=== PATIENT | male | born 1980 | race African-American/Black ===

== ENCOUNTER 2020-10-10 11:24 | Inpatient (IN) | payer OTHER ==
[2020-10-10 13:02] LABS: EOS % 4.6 % (0-4.5); HEMATOCRIT 24.1 % (35.4-49); HEMOGLOBIN 8.4 GM/dL (11.7-16.9); LYMPH % 12.1 % (8-40); MCH 32.5 pg (25.7-33.7); MCHC 34.8 g/dl (32.0-35.9); MEAN CELL VOLUME 93.4 fl (80-96); MEAN PLT VOLUME 5.9 fl (7.5-11.1); MONO % 5.9 % (3.8-10.2); NEUT % 76.4 % (42.8-82.8); PLATELET COUNT 277 10^3/uL (134-434); RBC 2.58 M/mm3 (4.00-5.60); RDW 14.7 % (11.9-15.9); WHITE BLOOD COUNT 6.1 K/mm3 (4.0-10.0)
[2020-10-10 13:08] LABS: INR 1.06 (0.83-1.09)
[2020-10-10 13:11] LABS: ACTIVATED PTT 30.9 SECONDS (25.2-36.5)
[2020-10-10 13:26] LABS: ALBUMIN 3.5 g/dl (3.4-5.0); BILIRUBIN,TOTAL 0.3 mg/dL (0.2-1); BLOOD UREA NITROGEN 14.9 mg/dL (7-18); CALCIUM 8.7 mg/dL (8.5-10.1); CREATININE 6.2 mg/dL (0.55-1.3); TOT PROT 6.6 g/dl (6.4-8.2)
[2020-10-10] MEDS ORDERED: POTASSIUM CHLORIDE TABS 20 MEQ TABLET.ER (FP) PO ONE ×2 (17:26→18:29)
[2020-10-10] MEDS ORDERED: SODIUM CHLORIDE 1,000 ML IV SCH (17:30)
[2020-10-10] MEDS ORDERED: IRON SUCROSE INJECTION 200 MG in SODIUM CHLORIDE 90 ML IVPB ONE (19:49)
[2020-10-10] MEDS: POLYETHYLENE GLYCOL (HEALTHYLAX) 3350 17 GM PACKET PO SCH (22:30)
[2020-10-11 09:13] LABS: BASO % 1.1 % (0-2.0); HEMATOCRIT 21.9 % (35.4-49); HEMOGLOBIN 7.6 GM/dL (11.7-16.9); LYMPH % 15.5 % (8-40); MCH 32.4 pg (25.7-33.7); MCHC 34.8 g/dl (32.0-35.9); MEAN PLT VOLUME 6.3 fl (7.5-11.1); MONO % 6.1 % (3.8-10.2); NEUT % 69.3 % (42.8-82.8); PLATELET COUNT 248 10^3/uL (134-434); RBC 2.35 M/mm3 (4.00-5.60); RDW 14.9 % (11.9-15.9)
[2020-10-11 09:29] LABS: CHLORIDE 101 mmol/L (98-107); SODIUM 139 mmol/L (136-145)
[2020-10-11 09:39] LABS: CALCIUM 9.7 mg/dL (8.5-10.1)
[2020-10-11 09:40] LABS: ALBUMIN 3.3 g/dl (3.4-5.0); ANION GAP 8 MMOL/L (8-16); BLOOD UREA NITROGEN 23.2 mg/dL (7-18); CO2 30 mmol/L (21-32); GLUCOSE,RANDOM 79 mg/dL (74-106)
[2020-10-11 09:41] LABS: MAGNESIUM 2.1 mg/dL (1.8-2.4)
[2020-10-11 09:43] LABS: BILIRUBIN,TOTAL 0.3 mg/dL (0.2-1); PHOSPHOROUS 5.7 mg/dL (2.5-4.9); SGOT/AST 12 U/L (15-37); SGPT/ALT 14 U/L (13-61)
[2020-10-11 09:44] LABS: ALK PHOS 115 U/L (45-117)
[2020-10-11 09:45] LABS: CREATININE 8.9 mg/dL (0.55-1.3)
[2020-10-11] MEDS: POLYETHYLENE GLYCOL (HEALTHYLAX) 3350 17 GM PACKET PO SCH (09:47)
[2020-10-11 14:08] VITALS: BMI 24.7
[2020-10-11 17:40] LABS: BASO % 1.6 % (0-2.0); EOS % 8.1 % (0-4.5); HEMATOCRIT 23.2 % (35.4-49); HEMOGLOBIN 8.1 GM/dL (11.7-16.9); LYMPH % 14.8 % (8-40); MCH 32.2 pg (25.7-33.7); MEAN CELL VOLUME 92.2 fl (80-96); MONO % 6.6 % (3.8-10.2); NEUT % 68.9 % (42.8-82.8); PLATELET COUNT 265 10^3/uL (134-434); RBC 2.51 M/mm3 (4.00-5.60); RDW 14.6 % (11.9-15.9); WHITE BLOOD COUNT 5.7 K/mm3 (4.0-10.0)
[2020-10-11 17:56] LABS: MEAN PLT VOLUME 5.8 fl (7.5-11.1)
[2020-10-11 18:58] VITALS: BP 120/80; PULSE 77; TEMP 98.5
[2020-10-13 20:10] LABS: TRANSGLUTAMINASE IGA < 2 U/mL (0-3); TRANSGLUTAMINASE IGG < 2 U/mL (0-5)
== END 2020-10-11 19:22 | disposition home or self-care (01) | DRG 393 ==
LOC: JER 11:24 → JERBED 16:01 → J8W 22:03
PROVIDERS: ATTEND Internal Medicine
DX: K64.4 Residual hemorrhoidal skin tags (principal); N18.6 End stage renal disease; I13.2 Hypertensive heart and chronic kidney disease with heart failure and with stage 5 chronic kidney disease, or end stage renal disease; K92.2 Gastrointestinal hemorrhage, unspecified; I50.9 Heart failure, unspecified; Z99.2 Dependence on renal dialysis; D64.9 Anemia, unspecified; K59.00 Constipation, unspecified
CPT/HCPCS: 36415; 71045-TC-FY; 80053; 82272; 82728; 83516; 83540; 83550; 83735; 84100; 85025; 85045; 85610; 85730; 93005; 93010; 99285-25; C9803; J1756; U0003; U0005